=== PATIENT | male | born 1960 | race Caucasian/White ===

== ENCOUNTER 2018-04-13 22:25 | Emergency (ER) | payer OTHER ==
--- NOTE | 2018-04-14 00:03 | ER ---
Nurse's Notes [facility] Name: Je Proctor Age: 57 yrs Sex: Male : 1960 Arrival Date: 04/13/2018 Time: 22:33 Bed 13 Private MD: Yonatan Velazquez H Diagnosis: Puncture wound without foreign body, left foot Presentation: 04/13 22:43 Presenting complaint: Patient states: left foot pain s/p stepping on wire at 1500 ak1 04/12/18. pt c/p increased pain at 0300, went to [facility] at 1800 for tetanus injection. Transition of care: patient was not received from another setting of care. Onset of symptoms was April 13, 2018. Risk Assessment: Do you want to hurt yourself or someone else? Patient reports no desire to harm self or others. Care prior to arrival: None. 22:43 Method Of Arrival: Ambulatory ak1 22:43 Acuity: TIANA 4 ak1 22:46 Initial Sepsis Screen: Does the patient meet any 2 criteria? No. Patient's initial cc3 sepsis screen is negative. Does the patient have a suspected source of infection? No. Patient's initial sepsis screen is negative. Triage Assessment: 22:46 Injury Description: Puncture sustained to left plantar. cc3 Historical: - Allergies: 22:45 PENICILLINS; ak1 - Home Meds: 22:45 Lyrica Oral 200 mg 3 times per day for sciatic nreve pain [Active]; ak1 - PMHx: 22:45 SCIATIC NERVE PAIN; Hypertension; ak1 - PSHx: 22:45 None; ak1 - Immunization history:: Adult Immunizations unknown, Last tetanus immunization: up to date. - Social history:: Smoking status: Patient uses tobacco products, denies chronic smoking, but will smoke occasionally. - Ebola Screening: : No symptoms or risks identified at this time. Screenin:46 Abuse screen: Denies threats or abuse. Denies injuries from another. Nutritional cc3 screening: No deficits noted. Tuberculosis screening: No symptoms or risk factors identified. Fall Risk Ambulatory Aid- None/Bed Rest/Nurse Assist (0 pts). Gait- Normal/Bed Rest/Wheelchair (0 pts) Mental Status- Oriented to own ability (0 pts). Assessment: 22:46 General: Appears in no apparent distress. uncomfortable, Behavior is calm, cooperative, cc3 appropriate for age. Pain: Complains of pain in left foot. Neuro: Level of Consciousness is awake, alert, obeys commands, Oriented to person, place, time, situation, Appropriate for age. Cardiovascular: Denies chest pain. Respiratory: Airway is patent Respiratory effort is even, unlabored, Respiratory pattern is regular, symmetrical. GI: Abdomen is round non-distended. : No signs and/or symptoms were reported regarding the genitourinary system. EENT: No signs and/or symptoms were reported regarding the EENT system. Derm: No signs and/or symptoms reported regarding the dermatologic system. Musculoskeletal: Circulation, motion, and sensation intact. Range of motion: intact in all extremities. 23:46 Reassessment: Patient appears in no apparent distress at this time. Patient and/or cc3 family updated on plan of care and expected duration. Pain level reassessed. Patient is alert, oriented x 3, equal unlabored respirations, skin warm/dry/pink. 04/14 00:15 Reassessment: Patient appears in no apparent distress at this time. Patient and/or cc3 family updated on plan of care and expected duration. Pain level reassessed. Patient is alert, oriented x 3, equal unlabored respirations, skin warm/dry/pink. Dr. Montalvo discharged the patient home with prescription given. No IV cannula in situ. Patient left ER vitally stable and ambulatory. Vital Signs: 04/13 22:42 BP 211 / 121; Pulse 104; Resp 20; Temp 99.8(TE); Pulse Ox 96% on R/A; Weight 77.11 kg ak1 (R); Height 5 ft. 2 in. (157.48 cm) (R); Pain 10/10; 23:00 BP 166 / 99; Pulse 102; Resp 19 S; Pulse Ox 95% on R/A; cc3 04/14 00:05 BP 163 / 77; Pulse 101; Resp 19 S; Pulse Ox 96% on R/A; cc3 04/13 22:42 Body Mass Index 31.09 (77.11 kg, 157.48 cm) ak1 ED Course: 04/13 22:33 Patient arrived in ED. am2 22:34 Yonatan Velazquez DO is Private Physician. am2 22:42 Arm band placed on Patient placed in an exam room, on a stretcher, Patient notified of ak1 wait time. 22:44 Triage completed. ak1 22:46 Mariely Flores is Primary Nurse. cc3 22:46 Patient has correct armband on for positive identification. Placed in gown. Bed in low cc3 position. Call light in reach. Side rails up X 1. Pulse ox on. NIBP on. 22:53 Ashwin Montalvo MD is Attending Physician. tw4 23:28 X-ray completed. Portable x-ray completed in exam room. Patient tolerated procedure jb2 well. 23:29 Foot Left 3 View XRAY In Process Unspecified. EDMS 04/14 00:01 Yonatan Velazquez DO is Referral Physician. tw4 00:15 No provider procedures requiring assistance completed. Patient did not have IV access cc3 during this emergency room visit. Administered Medications: 00:10 Drug: Clindamycin 300 mg Route: PO; cc3 00:15 Follow up: Response: No adverse reaction cc3 00:16 Not Given (Patient Refused): Ibuprofen 800 mg PO once cc3 Outcome: 00:02 Discharge ordered by . tw4 00:15 Discharged to home ambulatory. cc3 00:15 Condition: stable 00:15 Discharge instructions given to patient, Instructed on discharge instructions, follow up and referral plans. medication usage, Demonstrated understanding of instructions, follow-up care, medications, Prescriptions given X 2. 00:20 Patient left the ED. cc3 Signatures: Dispatcher [employer] EDND Deuce Tomlinson2 Jade Azul, RN RN ak1 Christal Del Cid am2 Ashwin Montalvo MD MD tw4 Mariely Flores cc3
--- NOTE | 2018-04-14 00:03 | EDPHYS ---
Physician Documentation [facility] Name: Je Proctor Age: 57 yrs Sex: Male : 1960 Arrival Date: 04/13/2018 Time: 22:33 Bed 13 Private MD: Yonatan Velazquez H ED Physician Ashwin Montalvo HPI: 04/14 00:07 This 57 yrs old Male presents to ER via Ambulatory with complaints of Foot tw4 Injury - stepped on nail, foot swelling. 00:07 The patient presents with pain, that is acute. The complaints affect the left foot. tw4 Context: The problem was sustained at home, resulted from the patient stepping on a nail. Onset: The symptoms/episode began/occurred today. Modifying factors: The symptoms are alleviated by nothing, the symptoms are aggravated by nothing. Associated signs and symptoms: The patient has no apparent associated signs or symptoms. Severity of symptoms: At their worst the symptoms were moderate, in the emergency department the symptoms are unchanged. The patient has not experienced similar symptoms in the past. Historical: - Allergies: 04/13 22:45 PENICILLINS; ak1 - Home Meds: 22:45 Lyrica Oral 200 mg 3 times per day for sciatic nreve pain [Active]; ak1 - PMHx: 22:45 SCIATIC NERVE PAIN; Hypertension; ak1 - PSHx: 22:45 None; ak1 - Immunization history:: Adult Immunizations unknown, Last tetanus immunization: up to date. - Social history:: Smoking status: Patient uses tobacco products, denies chronic smoking, but will smoke occasionally. - Ebola Screening: : No symptoms or risks identified at this time. ROS: 04/14 00:07 MS/extremity: Positive for injury or acute deformity, pain, of the ball of left foot. tw4 Constitutional: Negative for fever, chills, and weight loss, Eyes: Negative for injury, pain, redness, and discharge, Cardiovascular: Negative for chest pain, palpitations, and edema, Respiratory: Negative for shortness of breath, cough, wheezing, and pleuritic chest pain, Abdomen/GI: Negative for abdominal pain, nausea, vomiting, diarrhea, and constipation, Back: Negative for injury and pain, Skin: Negative for injury, rash, and discoloration, Neuro: Negative for headache, weakness, numbness, tingling, and seizure. Exam: 00:07 Constitutional: This is a well developed, well nourished patient who is awake, alert, tw4 and in no acute distress. Head/Face: Normocephalic, atraumatic. Cardiovascular: Regular rate and rhythm with a normal S1 and S2. No gallops, murmurs, or rubs. Normal PMI, no JVD. No pulse deficits. Respiratory: Lungs have equal breath sounds bilaterally, clear to auscultation and percussion. No rales, rhonchi or wheezes noted. No increased work of breathing, no retractions or nasal flaring. Abdomen/GI: Soft, non-tender, with normal bowel sounds. No distension or tympany. No guarding or rebound. No evidence of tenderness throughout. 00:07 Musculoskeletal/extremity: Extremities: noted in the ball of left foot: pain, swelling, tenderness, ROM: no acute changes, Circulation is intact in all extremities. Sensation intact. Vital Signs: 04/13 22:42 BP 211 / 121; Pulse 104; Resp 20; Temp 99.8(TE); Pulse Ox 96% on R/A; Weight 77.11 kg ak1 (R); Height 5 ft. 2 in. (157.48 cm) (R); Pain 10/10; 23:00 BP 166 / 99; Pulse 102; Resp 19 S; Pulse Ox 95% on R/A; cc3 04/14 00:05 BP 163 / 77; Pulse 101; Resp 19 S; Pulse Ox 96% on R/A; cc3 04/13 22:42 Body Mass Index 31.09 (77.11 kg, 157.48 cm) ak1 MDM: 04/13 22:53 Patient medically screened. tw4 04/14 00:07 Differential diagnosis: fracture, sprain, penetrating trauma. Data reviewed: vital tw4 signs, nurses notes. Data interpreted: Pulse oximetry: Interpretation: normal. Test interpretation: by ED physician or midlevel provider: plain radiologic studies. Counseling: I had a detailed discussion with the patient and/or guardian regarding: the historical points, exam findings, and any diagnostic results supporting the discharge/admit diagnosis. Special discussion: I discussed with the patient/guardian in detail that at this point there is no indication for admission to the hospital. It is understood, however, that if the symptoms persist or worsen the patient needs to return immediately for re-evaluation. 04/13 23:05 Order name: Foot Left 3 View XRAY tw4 Administered Medications: 00:10 Drug: Clindamycin 300 mg Route: PO; cc3 00:15 Follow up: Response: No adverse reaction cc3 00:16 Not Given (Patient Refused): Ibuprofen 800 mg PO once cc3 Disposition: 05:22 Chart complete. tw4 Disposition: 04/14/18 00:02 Discharged to Home. Impression: Puncture wound without foreign body, left foot. - Condition is Stable. - Discharge Instructions: Puncture Wound. - Prescriptions for Clindamycin HCl 300 mg Oral Capsule - take 1 capsule by ORAL route every 6 hours for 10 days; 40 capsule. Ibuprofen 800 mg Oral Tablet - take 1 tablet by ORAL route every 12 hours As needed take with food; 20 tablet. - Medication Reconciliation Form, Thank You Letter, Antibiotic Education, Prescription Opioid Use form. - Follow up: Yonatan Velazquez DO; When: Upon discharge from the Emergency Department; Reason: If symptoms return, Recheck today's complaints, Continuance of care. - Problem is new. - Symptoms have improved. Signatures: Dispatcher [employer] EDMS Jade Azul RN RN ak1 Ashwin Montalvo MD MD tw4 Mariely Flores cc3 Corrections: (The following items were deleted from the chart) 00:20 00:02 04/14/2018 00:02 Discharged to Home. Impression: Puncture wound without foreign cc3 body, left foot. Condition is Stable. Forms are Medication Reconciliation Form, Thank You Letter, Antibiotic Education, Prescription Opioid Use. Follow up: Yonatan Velazquez; When: Upon discharge from the Emergency Department; Reason: If symptoms return, Recheck today's complaints, Continuance of care. Problem is new. Symptoms have improved. tw4
[2018-04-14] MEDS ORDERED: IBUPROFEN 400 MG TAB ONE (00:21)
[2018-04-14] MEDS ORDERED: CLINDAMYCIN HCL 150 MG CAP ONE (00:21)
[2018-04-14 03:45] VITALS: TEMP 99.8
[2018-04-14 03:46] VITALS: BP 166/99; O2SAT 95
--- NOTE | 2018-04-14 08:11 | RAD REPORT ---
EXAM DESCRIPTION: RAD - Foot Left 3 View - 04/13/2018 11:28 pm CLINICAL HISTORY: puncture wound Pain and swelling COMPARISON: No comparisons FINDINGS: No fracture or dislocation of the left foot is seen. Degenerative changes involve the grea t toe interphalangeal joint with adjacent soft tissue swelling. No radiopaque foreign body is seen.
== END 2018-04-14 00:20 | disposition home or self-care (01) ==
LOC: ER 22:25
DX: S91.332A Puncture wound without foreign body, left foot, initial encounter (principal); W45.0XXA Nail entering through skin, initial encounter; Y93.89 Activity, other specified; Y92.009 Unspecified place in unspecified non-institutional (private) residence as the place of occurrence of the external cause; Z88.0 Allergy status to penicillin; Z72.0 Tobacco use; I10 Essential (primary) hypertension
CPT/HCPCS: 99284

== ENCOUNTER 2019-01-06 13:00 | Emergency (ER) | payer OTHER ==
--- NOTE | 2019-01-06 14:36 | RAD REPORT ---
EXAM DESCRIPTION: USExtremity Venous Uni Ltd01/06/2019 2:27 pm CLINICAL HISTORY: left leg pain and swelling. COMPARISON: None. FINDINGS: Left common femoral, superficial femoral, popliteal and posterior tibial veins are compre ssible and demonstrate augmentation. Doppler demonstrates good flow. IMPRESSION: No evidence of deep venous thrombosis involving the left lower extremity.
--- NOTE | 2019-01-06 14:40 | RAD REPORT ---
EXAM DESCRIPTION: RAD - Foot Left 3 View - 01/06/2019 2:17 pm CLINICAL HISTORY: Left Foot pain FINDINGS: No fracture or dislocation is seen. 5 millimeter lucency has developed within the distal aspect of the first proximal phalanx. This may represent a subchondral cyst or erosion related to degenerative changes. Osteomyelitis can also have this appearance if clinically indicated further evaluation with MRI may be helpful Osteophytes are present at the first IP joint.
[2019-01-06 15:07] LABS: Absolute Lymphocytes (CBC) 1.9 K/uL (0.7-4.9); Basophils % 0.6 % (0-1.3); Hematocrit 36.4 % (39.6-49.0); Lymphocytes % 12.6 % (15.3-44.8); MPV 9.4 fL (7.6-11.3); RBC Red Blood Cell Count 3.98 M/uL (4.33-5.43)
[2019-01-06] MEDS ORDERED: MORPHINE 4 MG/ML SYR ONE (15:29)
[2019-01-06] MEDS ORDERED: ONDANSETRON 4 MG/2 ML VIAL ONE (15:29)
[2019-01-06 15:35] LABS: Albumin 3.4 g/dL (3.4-5.0); Bilirubin Total 0.2 mg/dL (0.2-1.0); Potassium 3.8 mmol/L (3.5-5.1); Protein, Total 7.3 g/dL (6.4-8.2)
--- NOTE | 2019-01-06 15:45 | ER ---
Nurse's Notes [facility] Name: Je Proctor Age: 58 yrs Sex: Male : 1960 Arrival Date: 01/06/2019 Time: 13:02 Bed 16 Private MD: Diagnosis: Cellulitis of left lower limb Presentation: 01/06 13:16 Presenting complaint: Left foot pain, swelling, and redness x 4 days. Transition of hb care: patient was not received from another setting of care. Onset of symptoms was January 02, 2019. Risk Assessment: Do you want to hurt yourself or someone else? Patient reports no desire to harm self or others. Care prior to arrival: Medication(s) given: Motrin, at 1100. 13:16 Method Of Arrival: Ambulatory hb 13:16 Acuity: TIANA 3 hb 16:47 Initial Sepsis Screen: Does the patient meet any 2 criteria? No. Patient's initial aj1 sepsis screen is negative. Does the patient have a suspected source of infection? Yes: Skin breakdown/wound. Historical: - Allergies: 13:17 PENICILLINS; hb - Immunization history:: Adult Immunizations up to date. - Social history:: Smoking status: Patient uses tobacco products, smokes one pack cigarettes per day. - Ebola Screening: : No symptoms or risks identified at this time. Screenin:45 Abuse screen: Denies threats or abuse. Denies injuries from another. Nutritional aj1 screening: No deficits noted. Tuberculosis screening: No symptoms or risk factors identified. 16:47 Fall Risk None identified. aj1 Assessment: 13:45 General: Appears in no apparent distress. uncomfortable, Behavior is calm, cooperative, aj1 appropriate for age. Pain: Complains of pain in left foot Pain currently is 10 out of 10 on a pain scale. Neuro: Level of Consciousness is awake, alert, obeys commands, Oriented to person, place, time, situation. Cardiovascular: Patient's skin is warm and dry. Respiratory: Airway is patent Respiratory effort is even, unlabored, Respiratory pattern is regular, symmetrical. GI: No signs and/or symptoms were reported involving the gastrointestinal system. : No signs and/or symptoms were reported regarding the genitourinary system. EENT: No signs and/or symptoms were reported regarding the EENT system. Derm: redness noted to left foot. Musculoskeletal: Swelling present in left foot. 14:45 Reassessment: Patient appears in no apparent distress at this time. No changes from aj1 previously documented assessment. Patient and/or family updated on plan of care and expected duration. Pain level reassessed. Patient is alert, oriented x 3, equal unlabored respirations, skin warm/dry/pink. 15:45 Reassessment: Patient appears in no apparent distress at this time. No changes from aj1 previously documented assessment. Patient and/or family updated on plan of care and expected duration. Pain level reassessed. Patient is alert, oriented x 3, equal unlabored respirations, skin warm/dry/pink. 16:46 Reassessment: Patient discharge pending completion of IV antibiotics. aj1 16:47 Reassessment: Patient appears in no apparent distress at this time. No changes from aj1 previously documented assessment. Patient and/or family updated on plan of care and expected duration. Pain level reassessed. Patient is alert, oriented x 3, equal unlabored respirations, skin warm/dry/pink. Vital Signs: 13:16 BP 158 / 98; Pulse 95; Resp 16; Temp 99; Pulse Ox 100% on R/A; Weight 72.57 kg; Height hb 5 ft. 2 in. (157.48 cm); Pain 10/10; 16:45 BP 148 / 93; Pulse 75; Resp 18; Pulse Ox 100% on R/A; aj1 13:16 Body Mass Index 29.26 (72.57 kg, 157.48 cm) hb ED Course: 13:02 Patient arrived in ED. as 13:16 Triage completed. hb 13:16 Arm band placed on. hb 13:33 Slick Barrow NP is PHCP. pm1 13:33 Espinoza Townsend MD is Attending Physician. pm1 13:44 Raquel Lerma, PEBBLES is Primary Nurse. aj1 13:45 Patient has correct armband on for positive identification. aj1 13:45 No provider procedures requiring assistance completed. aj1 14:15 Inserted saline lock: 20 gauge in right forearm, using aseptic technique. Blood aj1 collected. 14:17 Foot Left 3 View XRAY In Process Unspecified. EDMS 14:31 Extremity Venous Uni Ltd US In Process Unspecified. EDMS 16:54 IV discontinued, intact, bleeding controlled, No redness/swelling at site. Pressure aj1 dressing applied. Administered Medications: 15:30 Drug: Zofran 4 mg Route: IVP; Site: right forearm; tw2 16:53 Follow up: Response: No adverse reaction aj1 15:33 Drug: morphine 4 mg Route: IVP; Site: right forearm; tw2 16:53 Follow up: Response: No adverse reaction; Pain is decreased; RASS: Alert and Calm (0) aj1 16:24 Drug: Clindamycin 600 mg Route: IVPB; Infused Over: 30 mins; Site: right forearm; aj1 16:53 Follow up: IV Status: Completed infusion; IV Intake: 50ml aj1 Intake: 16:53 IV: 50ml; Total: 50ml. aj1 Outcome: 15:44 Discharge ordered by MD. pm1 16:55 Discharged to home ambulatory. aj1 16:55 Condition: good 16:55 Discharge instructions given to patient, Instructed on discharge instructions, follow up and referral plans. no drinking with medication, no driving heavy equipment, medication usage, Demonstrated understanding of instructions, follow-up care, medications, Prescriptions given X 3. 16:57 Patient left the ED. aj1 Signatures: Dispatcher [employer] EDMS Raquel Lerma RN RN aj1 Simran Santizo Patrick, ELLIOTT [employer]UD [employer] pm1 Kathleen Dale RN RN hb Wise, Tara, RN RN tw2 Corrections: (The following items were deleted from the chart) 13:17 13:16 Care prior to arrival: None. hb hb
--- NOTE | 2019-01-06 15:45 | EDPHYS ---
Physician Documentation [facility] Name: Je Proctor Age: 58 yrs Sex: Male : 1960 Arrival Date: 01/06/2019 Time: 13:02 Bed 16 Private MD: ED Physician Espinoza Townsend HPI: 01/06 15:04 This 58 yrs old Male presents to ER via Ambulatory with complaints of Left pm1 Foot Swelling. 15:04 The patient presents with pain, swelling. The complaints affect the dorsum of left pm1 foot. Context: The problem was sustained at home, resulted from an unknown cause, the patient can fully bear weight, the patient is able to ambulate. Onset: The symptoms/episode began/occurred 4 day(s) ago. Modifying factors: The symptoms are alleviated by elevating leg, the symptoms are aggravated by dependence. Associated signs and symptoms: Pertinent positives: calf tenderness, swelling, Pertinent negatives fever, numbness, tingling. Treatment prior to arrival includes: no previous treatment. Severity of symptoms: in the emergency department the symptoms are unchanged. The patient has not experienced similar symptoms in the past. Patient reports swelling and pain to left foot and comes and goes over the past 4 days. Historical: - Allergies: 13:17 PENICILLINS; hb - Immunization history:: Adult Immunizations up to date. - Social history:: Smoking status: Patient uses tobacco products, smokes one pack cigarettes per day. - Ebola Screening: : No symptoms or risks identified at this time. ROS: 15:04 Constitutional: Negative for fever, chills, and weight loss, Cardiovascular: Negative pm1 for chest pain, palpitations, and edema, Respiratory: Negative for shortness of breath, cough, wheezing, and pleuritic chest pain, Abdomen/GI: Negative for abdominal pain, nausea, vomiting, diarrhea, and constipation, Back: Negative for injury and pain. 15:04 Skin: Negative for injury, rash, and discoloration, Neuro: Negative for headache, weakness, numbness, tingling, and seizure. 15:04 MS/extremity: Positive for pain, swelling, of the left calf and dorsum of left foot. Exam: 15:04 Constitutional: This is a well developed, well nourished patient who is awake, alert, pm1 and in no acute distress. Head/Face: Normocephalic, atraumatic. Neck: Trachea midline, no thyromegaly or masses palpated, and no cervical lymphadenopathy. Supple, full range of motion without nuchal rigidity, or vertebral point tenderness. No Meningismus. Chest/axilla: Normal chest wall appearance and motion. Nontender with no deformity. No lesions are appreciated. Cardiovascular: Regular rate and rhythm with a normal S1 and S2. No gallops, murmurs, or rubs. Normal PMI, no JVD. No pulse deficits. Respiratory: Lungs have equal breath sounds bilaterally, clear to auscultation and percussion. No rales, rhonchi or wheezes noted. No increased work of breathing, no retractions or nasal flaring. Abdomen/GI: Soft, non-tender, with normal bowel sounds. No distension or tympany. No guarding or rebound. No evidence of tenderness throughout. Back: No spinal tenderness. No costovertebral tenderness. Full range of motion. 15:04 Musculoskeletal/extremity: Calves: are tender, on left. 15:04 Skin: Appearance: normal except for affected area, cellulitis, that is mild, on the dorsum of left foot. 15:04 Neuro: Orientation: is normal, Motor: is normal, moves all fours, Sensation: is normal, no obvious gross deficits. Vital Signs: 13:16 BP 158 / 98; Pulse 95; Resp 16; Temp 99; Pulse Ox 100% on R/A; Weight 72.57 kg; Height hb 5 ft. 2 in. (157.48 cm); Pain 10/10; 16:45 BP 148 / 93; Pulse 75; Resp 18; Pulse Ox 100% on R/A; aj1 13:16 Body Mass Index 29.26 (72.57 kg, 157.48 cm) hb MDM: 13:34 Patient medically screened. pm1 15:04 ED course: No tenderness or swelling present to left first great toe. Lucency seen on pm1 xray does not clinically represent osteomyelitis . 15:43 Data reviewed: vital signs. Data interpreted: Pulse oximetry: on room air is 100 %. pm1 Interpretation: normal. Counseling: I had a detailed discussion with the patient and/or guardian regarding: the historical points, exam findings, and any diagnostic results supporting the discharge/admit diagnosis, lab results, radiology results, the need for outpatient follow up, to return to the emergency department if symptoms worsen or persist or if there are any questions or concerns that arise at home. 15:43 ED course: Asked patient if he would like to stay in the hospital. Patient prefers to pm1 go home to trial on antibiotic therapy and return to ER if cellulitis worsens. Patient wants to go home because his swelling and pain have improved during ER stay with elevation of his foot. 01/06 14:01 Order name: CBC with Diff; Complete Time: 15:23 pm1 01/06 14:01 Order name: CMP; Complete Time: 15:37 pm1 01/06 14:01 Order name: Foot Left 3 View XRAY; Complete Time: 14:47 pm1 01/06 14:01 Order name: Extremity Venous Uni Ltd US; Complete Time: 14:45 pm1 01/06 14:01 Order name: IV Saline Lock; Complete Time: 15:06 pm1 Administered Medications: 15:30 Drug: Zofran 4 mg Route: IVP; Site: right forearm; tw2 16:53 Follow up: Response: No adverse reaction [facility] 15:33 Drug: morphine 4 mg Route: IVP; Site: right forearm; tw2 16:53 Follow up: Response: No adverse reaction; Pain is decreased; RASS: Alert and Calm (0) [facility] 16:24 Drug: Clindamycin 600 mg Route: IVPB; Infused Over: 30 mins; Site: right forearm; aj1 16:53 Follow up: IV Status: Completed infusion; IV Intake: 50ml [facility] Disposition: 01/07 07:32 Co-signature as Attending Physician, Espinoza Townsend MD I agree with the assessment and kdr plan of care. Disposition: 01/06/19 15:44 Discharged to Home. Impression: Cellulitis of left lower limb. - Condition is Stable. - Discharge Instructions: Cellulitis, Adult. - Prescriptions for Bactroban 2 % Topical Ointment - Apply to affected area 1 application by TOPICAL route every 12 hours; 30 gram. Clindamycin HCl 300 mg Oral Capsule - take 1 capsule by ORAL route every 6 hours for 10 days; 40 capsule. Tylenol- Codeine #3 300-30 mg Oral Tablet - take 2 tablets by ORAL route every 6 hours As needed; 20 tablet. - Medication Reconciliation Form, Thank You Letter, Antibiotic Education, Prescription Opioid Use form. - Follow up: Emergency Department; When: As needed; Reason: Worsening of condition. Follow up: Private Physician; When: 2 - 3 days; Reason: Recheck today's complaints, Continuance of care, Re-evaluation by your physician. - Problem is new. - Symptoms have improved. Signatures: Dispatcher [employer] EDMS Raquel Lerma RN RN aj1 Espinoza Townsend MD MD kdr Marinas, Patrick, ELLIOTT [employer] MANAGER pm1 Kathleen Dale RN RN Yareli Munoz RN RN tw2 Corrections: (The following items were deleted from the chart) 01/06 16:57 15:44 01/06/2019 15:44 Discharged to Home. Impression: Cellulitis of left lower limb. aj1 Condition is Stable. Forms are Medication Reconciliation Form, Thank You Letter, Antibiotic Education, Prescription Opioid Use. Follow up: Emergency Department; When: As needed; Reason: Worsening of condition. Follow up: Private Physician; When: 2 - 3 days; Reason: Recheck today's complaints, Continuance of care, Re-evaluation by your physician. Problem is new. Symptoms have improved. pm1
[2019-01-06] MEDS ORDERED: CLINDAMYCIN 600MG/D5W 600 MG/50 ML BAG IV ONE (16:20)
[2019-01-06 17:12] VITALS: BP 158/98; TEMP 99; O2SAT 100
== END 2019-01-06 16:57 | disposition home or self-care (01) ==
LOC: ER 13:00
DX: L03.116 Cellulitis of left lower limb (principal); F17.210 Nicotine dependence, cigarettes, uncomplicated; Z88.0 Allergy status to penicillin
CPT/HCPCS: 96365; 85025; 36415; 80053; 73630; 93971; 96375; 99284; J2405

== ENCOUNTER 2022-09-07 05:43 | Emergency (ER) | payer OTHER ==
[2022-09-07] MEDS ORDERED: NA CHLORIDE 0.9% 1,000 ML ONE (06:23)
[2022-09-07] MEDS ORDERED: ASPIRIN 81 MG CHEWABLE TABLET ONE (06:23)
[2022-09-07] MEDS ORDERED: IBUPROFEN 400 MG TAB ONE (06:23)
[2022-09-07 06:26] LABS: Absolute Lymphocytes (CBC) 1.9 K/uL (0.7-4.9); Hematocrit 41.6 % (39.6-49.0); Lymphocytes % 16.8 % (15.3-44.8); MCV 93.7 fL (80-100); MPV 9.3 fL (7.6-11.3); RBC Red Blood Cell Count 4.44 M/uL (4.33-5.43)
[2022-09-07 06:29] LABS: Protime INR 1.02
[2022-09-07 06:47] LABS: Albumin 3.8 g/dL (3.4-5.0); Bilirubin Direct 0.1 mg/dL (0-0.2); Bilirubin Indirect, Calculated 0.2 mg/dL (0.2-0.8); Bilirubin Total 0.3 mg/dL (0.2-1.0); Magnesium 1.9 mg/dL (1.6-2.4); Potassium 4.4 mEq/L (3.5-5.1)
--- NOTE | 2022-09-07 08:25 | ER ---
Nurse's Notes [facility] Name: Je Proctor Age: 62 yrs Sex: Male : 1960 Arrival Date: 09/07/2022 Time: 05:43 Bed 13 Private MD: Diagnosis: Chest pain, unspecified;Cannabis abuse, uncomplicated Presentation: 09/07 06:00 Chief complaint: EMS states: Toned out for chest pain that radiates to back, states ll3 pain started 1 hr [employer], states it began after smoking marijuana. Coronavirus screen: Vaccine status: Patient reports being unvaccinated. At this time, the client does not indicate any symptoms associated with coronavirus-19. Ebola Screen: No symptoms or risks identified at this time. Initial Sepsis Screen: Does the patient meet any 2 criteria? No. Patient's initial sepsis screen is negative. Does the patient have a suspected source of infection? No. Patient's initial sepsis screen is negative. Risk Assessment: Do you want to hurt yourself or someone else? Patient reports no desire to harm self or others. Onset of symptoms was September 07, 2022. 06:00 Method Of Arrival: EMS: [facility] ll3 06:00 Acuity: TIANA 2 ll3 Triage Assessment: 06:00 General: Appears uncomfortable, Behavior is calm, cooperative. Pain: Complains of pain ll3 in chest Pain radiates to back Pain currently is 4 out of 10 on a pain scale. Quality of pain is described as sharp, Pain began 1 hour ago. Is continuous. Neuro: Level of Consciousness is awake, alert, obeys commands, Oriented to person, place, time, situation. Cardiovascular: Reports chest pain, shortness of breath, Patient's skin is warm and dry. Chest pain is described as vague, quality is sharp, is located in left anterior chest wall radiates back began 1 hour prior to arrival episodes are continuous. Respiratory: Respiratory effort is even, unlabored, Respiratory pattern is regular, symmetrical. Derm: Skin is pink, warm \T\ dry. Historical: - Allergies: 06:41 PENICILLINS; ll3 - PMHx: 06:41 Hypertension; SCIATIC NERVE PAIN; ll3 - Immunization history:: Client reports having NOT received the Covid vaccine. - Social history:: Smoking status: Patient reports the use of cigarette tobacco products, smokes one pack cigarettes per day. Patient uses street drugs, marijuana. - Family history:: not pertinent. Screenin:00 [facility] ED Fall Risk Assessment (Adult) History of falling in the last 3 months, db including since admission No falls in past 3 months (0 pts) Confusion or Disorientation No (0 pts) Intoxicated or Sedated No (0 pts) Impaired Gait No (0 pts) Mobility Assist Device Used No (0 pt) Altered Elimination No (0 pt) Score/Fall Risk Level 0 - 2 = Low Risk Oriented to surroundings, Maintained a safe environment. Abuse screen: Denies threats or abuse. Denies injuries from another. Nutritional screening: No deficits noted. Tuberculosis screening: No symptoms or risk factors identified. Assessment: 06:00 General: See triage assessment. ll3 07:00 Reassessment: Patient appears in no apparent distress at this time. Patient and/or db family updated on plan of care and expected duration. Pain level reassessed. Patient is alert, oriented x 3, equal unlabored respirations, skin warm/dry/pink. General: Appears in no apparent distress. comfortable, Behavior is calm, cooperative. Neuro: Level of Consciousness is awake, alert, obeys commands, Oriented to person, place, time, situation. Respiratory: Airway is patent Respiratory effort is even, unlabored, Respiratory pattern is regular, symmetrical. 09:00 Reassessment: Patient appears in no apparent distress at this time. Patient and/or db family updated on plan of care and expected duration. Pain level reassessed. Patient is alert, oriented x 3, equal unlabored respirations, skin warm/dry/pink. Patient states feeling better. Patient states symptoms have improved. Vital Signs: 06:27 BP 99 / 76; Pulse 76; Resp 16; Temp 98.3(O); Pulse Ox 94% on R/A; Weight 74.84 kg (R); ll3 Height 5 ft. 3 in. (R); 06:59 BP 104 / 61; Pulse 68; Resp 16; Pulse Ox 92% on R/A; ll3 09:00 BP 96 / 67; Pulse 62; Resp 18; Pulse Ox 96% on R/A; db 06:27 Body Mass Index 29.23 (74.84 kg, 160.02 cm) ll3 ED Course: 05:46 Patient arrived in ED. rv1 05:56 Prashant Lau MD is Attending Physician. sp4 06:00 Arm band placed on Patient placed in an exam room, on a stretcher, on pulse oximetry. ll3 EKG completed in triage. Results shown to MD. 06:15 Missed attempt(s): 20 gauge in right forearm. bc6 06:16 XRAY Chest (1 view) In Process Unspecified. EDMS 06:23 Basic Metabolic Panel Sent. bc6 06:24 CBC with Diff Sent. bc6 06:24 LFT's Sent. bc6 06:24 Magnesium Sent. bc6 06:24 NT PRO-BNP Sent. bc6 06:24 PT-INR Sent. bc6 06:24 Troponin HS Sent. bc6 06:24 Inserted saline lock: 22 gauge in left hand, using aseptic technique. bc6 06:41 Triage completed. ll3 07:05 Warm blanket given. db 08:23 Brett Sorensen MD is Referral Physician. sp4 08:24 Khris Hamlin DO is Referral Physician. sp4 09:01 No provider procedures requiring assistance completed. IV discontinued, intact, db bleeding controlled, No redness/swelling at site. 09:01 Patient has correct armband on for positive identification. Bed in low position. Call db light in reach. Side rails up X 1. Client placed on continuous cardiac and pulse oximetry monitoring. NIBP monitoring applied. Administered Medications: 06:27 Drug: Aspirin PO Chewable Tablet 324 mg Route: PO; ll3 09:03 Follow up: Response: No adverse reaction db 06:27 Drug: NS 0.9% IV 1000 ml Route: IV; Rate: 1 bolus; Site: left hand; ll3 09:03 Follow up: Response: No adverse reaction; IV Status: Completed infusion; IV Intake: db 1000ml 06:27 Drug: Ibuprofen PO 800 mg Route: PO; ll3 09:03 Follow up: Response: No adverse reaction db Medication: 07:05 VIS not applicable for this client. db Intake: 09:03 IV: 1000ml; Total: 1000ml. db Outcome: 08:24 Discharge ordered by . sp4 09:01 Discharged to home ambulatory. db 09:01 Condition: stable 09:01 Discharge instructions given to patient, Instructed on discharge instructions, follow up and referral plans. 09:04 Patient left the ED. db Signatures: Dispatcher Amartus Prieto Mattson RN RN ll3 Angelita Culver RN RN db Pau Ortiz rv1 Dayanara Gonzalez 6 Prashant Lau MD MD sp4
--- NOTE | 2022-09-07 08:25 | EDPHYS ---
Physician Documentation [facility] Name: Je Proctor Age: 62 yrs Sex: Male : 1960 Arrival Date: 09/07/2022 Time: 05:43 Bed 13 Private MD: ED Physician Prashant Lau HPI: 09/07 08:09 This 62 yrs old Male presents to ER via EMS with complaints of chest pain. sp4 08:17 62-year-old male presents with midsternal chest pain after smoking cannabis at home sp4 last night about 1 hour prior to arrival. Patient has history of chronic sciatica and hypertension.. Historical: - Allergies: 06:41 PENICILLINS; ll3 - PMHx: 06:41 Hypertension; SCIATIC NERVE PAIN; ll3 - Immunization history:: Client reports having NOT received the Covid vaccine. - Social history:: Smoking status: Patient reports the use of cigarette tobacco products, smokes one pack cigarettes per day. Patient uses street drugs, marijuana. - Family history:: not pertinent. ROS: 08:17 Constitutional: Negative for fever, chills, and weight loss, Eyes: Negative for injury, sp4 pain, redness, and discharge, ENT: Negative for injury, pain, and discharge, Neck: Negative for injury, pain, and swelling, Cardiovascular: Negative for palpitations, and edema, positive for chest pain Respiratory: Negative for shortness of breath, cough, wheezing, and pleuritic chest pain, Abdomen/GI: Negative for abdominal pain, nausea, vomiting, diarrhea, and constipation, Back: Negative for injury and pain, : Negative for injury, bleeding, discharge, and swelling, MS/Extremity: Negative for injury and deformity, Skin: Negative for injury, rash, and discoloration, Neuro: Negative for headache, weakness, numbness, tingling, and seizure, Psych: Negative for depression, anxiety, Allergy/Immunology: Negative for hives, rash, and allergies Endocrine: Negative for neck swelling, polydipsia, polyuria, polyphagia, and weight changes Hematologic/Lymphatic: Negative for swollen nodes, abnormal bleeding, and unusual bruising Exam: 08:17 Constitutional: This is a well developed, well nourished patient who is awake, alert, sp4 and in no acute distress. Head/Face: Normocephalic, atraumatic. Eyes: Pupils equal round and reactive to light, extra-ocular motions intact. Lids and lashes normal. Conjunctiva and sclera are not injected. Cornea within normal limits. Periorbital areas with no swelling, redness, or edema. ENT: Nares patent. No nasal discharge, no septal abnormalities noted. Tympanic membranes are normal and external auditory canals are clear. Oropharynx with no redness, swelling, or masses, exudates, or evidence of obstruction, uvula midline. Mucous membranes moist. Neck: Trachea midline, no thyromegaly or masses palpated, and no cervical lymphadenopathy. Supple, full range of motion without nuchal rigidity, or vertebral point tenderness. Chest/axilla: Normal chest wall appearance and motion. Nontender with no deformity. No lesions are appreciated. Cardiovascular: Regular rate and rhythm with a normal S1 and S2. No gallops, murmurs, or rubs. Normal PMI, no JVD. No pulse deficits. Respiratory: Lungs have equal breath sounds bilaterally, clear to auscultation and percussion. No rales, rhonchi or wheezes noted. No increased work of breathing, no retractions or nasal flaring. Abdomen/GI: Soft, non-tender, with normal bowel sounds. No distension or tympany. No guarding or rebound. No evidence of tenderness throughout. Back: No spinal tenderness. No costovertebral tenderness. Skin: Warm, dry with normal turgor. Normal color with no rashes, no lesions, and no evidence of cellulitis. MS/ Extremity: Pulses equal, no cyanosis. Neurovascular intact. Full, normal range of motion. Neuro: Awake and alert, GCS 15, oriented to person, place, time, and situation. Cranial nerves II-XII grossly intact. Motor strength 5/5 in all extremities. Sensory grossly intact. Psych: Awake, alert, with orientation to person, place and time. Behavior, mood, and affect are within normal limits 08:21 ECG was reviewed by the Attending Physician. Normal sinus rhythm at the rate of 86, no sp4 ST elevation or depression. No ectopy. EKG time 0 551. Vital Signs: 06:27 BP 99 / 76; Pulse 76; Resp 16; Temp 98.3(O); Pulse Ox 94% on R/A; Weight 74.84 kg (R); ll3 Height 5 ft. 3 in. (R); 06:59 BP 104 / 61; Pulse 68; Resp 16; Pulse Ox 92% on R/A; ll3 09:00 BP 96 / 67; Pulse 62; Resp 18; Pulse Ox 96% on R/A; db 06:27 Body Mass Index 29.23 (74.84 kg, 160.02 cm) ll3 MDM: 05:57 Patient medically screened. sp4 08:21 Differential Diagnosis sepsis, Cardiac chest pain, noncardiac chest pain.. Data sp4 reviewed: vital signs, nurses notes, EMS record, old medical records, lab test result(s), EKG, radiologic studies. 08:21 Consideration of Admission/Observation Escalation of care including sp4 admission/observation considered. ED course: EKG normal today and ACS work-up is normal today. Patient creatinine is close to his baseline at 2.36. Patient advised to abstain from use of marijuana at home. Stable for discharge home at this time will advise outpatient follow-up with cardiology. Also outpatient follow-up with nephrology... 09/07 05:57 Order name: Basic Metabolic Panel; Complete Time: 08:09 sp4 09/07 05:57 Order name: CBC with Diff; Complete Time: 08:09 sp4 09/07 05:57 Order name: LFT's; Complete Time: 08:09 sp4 09/07 05:57 Order name: Magnesium; Complete Time: 08:09 4 09/07 05:57 Order name: NT PRO-BNP; Complete Time: 08:09 sp4 09/07 05:57 Order name: PT-INR; Complete Time: 08:09 sp4 09/07 05:57 Order name: Troponin HS; Complete Time: 08:09 sp4 09/07 05:57 Order name: XRAY Chest (1 view) sp4 09/07 05:57 Order name: EKG; Complete Time: 05:57 sp4 09/07 05:57 Order name: Cardiac monitoring; Complete Time: 06:23 sp4 09/07 05:57 Order name: EKG - Nurse/Tech; Complete Time: 05:57 sp4 09/07 05:57 Order name: IV Saline Lock; Complete Time: 06:23 sp4 09/07 05:57 Order name: Labs collected and sent; Complete Time: 06:23 sp4 09/07 05:57 Order name: O2 Per Protocol; Complete Time: 06: sp4 09/07 05:57 Order name: O2 Sat Monitoring; Complete Time: sp4 EC:21 Rate is 86 beats/min. Rhythm is regular, Normal Sinus Rhythm. QRS Lester is Normal. SD sp4 interval is normal. QRS interval is normal. QT interval is normal. T waves are Normal. No ST changes noted. Clinical impression: Normal ECG. Interpreted by me. Administered Medications: 06: Drug: Aspirin PO Chewable Tablet 324 mg Route: PO; ll3 09:03 Follow up: Response: No adverse reaction db 06:27 Drug: NS 0.9% IV 1000 ml Route: IV; Rate: 1 bolus; Site: left hand; ll3 09:03 Follow up: Response: No adverse reaction; IV Status: Completed infusion; IV Intake: db 1000ml 06: Drug: Ibuprofen PO 800 mg Route: PO; ll3 09:03 Follow up: Response: No adverse reaction db Disposition Summary: 09/07/22 08:24 Discharge Ordered Location: Home sp4 Problem: new sp4 Symptoms: have improved sp4 Condition: Fair sp4 Diagnosis - Chest pain, unspecified sp4 - Cannabis abuse, uncomplicated sp4 Followup: sp4 - With: Brett Sorensen MD - When: 10 - 14 days - Reason: Recheck today's complaints Followup: sp4 - With: Khris Hamlin DO - When: 10 - 14 days - Reason: Recheck today's complaints Discharge Instructions: - Discharge Summary Sheet sp4 - Nonspecific Chest Pain, Adult sp4 Signatures: Dispatcher [employer] Prieto Mattson RN RN 3 Prashant Lau MD MD sp4 Angelita Culver RN db
[2022-09-07 09:29] VITALS: TEMP 98.3
[2022-09-07 09:31] VITALS: BP 96/67; O2SAT 96
--- NOTE | 2022-09-07 09:43 | RAD REPORT ---
EXAM DESCRIPTION: Dayanara Single View09/07/2022 6:14 am CLINICAL HISTORY: Chest pain COMPARISON: 2016 FINDINGS: [facility] As of now it has not been dictated by them. So I will dictate The lungs appear clear of acute infiltrate. The heart is normal size IMPRESSION: No acute abnormalities displayed
--- NOTE | 2022-09-08 14:23 | EKG ---
Test Date: 2022-09-07 Test Time: 05:51:55 Associate Producer: MAX MEASUREMENT RESULTS: Intervals: Rate: 86 GA: 148 QRSD: 94 QT: 356 QTc: 426 [place]: P: 44 GA: 148 QRS: -27 T: 23 INTERPRETIVE STATEMENTS: Normal sinus rhythm Normal ECG Compared to ECG 08/29/2016 06:32:29 Sinus bradycardia no longer present Electronically Signed On 09-08-22 14:21:50 CDT by Brett Sorensen
== END 2022-09-07 09:04 | disposition home or self-care (01) ==
LOC: ER 05:43
DX: F12.10 Cannabis abuse, uncomplicated (principal); F17.210 Nicotine dependence, cigarettes, uncomplicated; I10 Essential (primary) hypertension; Z88.0 Allergy status to penicillin
CPT/HCPCS: 96361; 93005; 85025; 80048; 36415; 83735; 85610; 80076; 84484; 83880; 71045; 96360; 99285; J7030